=== PATIENT | female | born 1960 | race Caucasian/White ===

== ENCOUNTER 2021-03-13 07:37 | Outpatient (CLI) | payer BC, SELFPAY ==
--- NOTE | 2021-03-13 08:06 | ECHO_ITS ---
Patient Info Name: Karina Castrejon Age: 60 years : 1960 Gender: Female Ht: 66 in Wt: 250 lbs BSA: 2.35 m2 HR: 78 bpm BP: 145 / 91 mmHg Technical Quality: Fair Exam Date: 03/13/2021 8:18 AM Exam Location: [facility] Patient Status: Outpatient Admit Date: 03/13/2021 Staff Ordering Physician: Ryne Young APRN Print Shop Chief Clerk: Rita Wilkins RDCS Attending Provider: Ryne Young APRN Referring Physician: Hector LOVELACE; Exam Type: CA echo doppler color flow Study Info Indications I05.9 - RHEUMATIC MITRAL VALVE DISEASE, UNSPECIFIED Complete two-dimentional, color flow and Doppler transthoracic echocardiogram is performed with agitated saline and with contrast to opacify the left ventricle and to improve the delineation of the left ventricle endocardial borders. Summary 1. Left ventricular chamber dimension is normal. 2. Left ventricular systolic function is normal, estimated at 60-65%. 3. The left ventricular diastolic function is grade I diastolic dysfunction. 4. E/e' 14 is mildly elevated. 5. Left atrial chamber dimension is mildly enlarged. 6. No pulmonary hypertension, estimated pulmonary arterial systolic pressure is 20 mmHg. Left Ventricle E/e' 14 is mildly elevated. Left ventricular chamber dimension is normal. Left ventricular systolic function is normal, estimated at 60-65%. The left ventricular diastolic function is grade I diastolic dysfunction. Right Ventricle Right ventricular chamber dimension is normal. Right ventricular systolic function is normal. Left Atria Left atrial chamber dimension is mildly enlarged. Right Atria Right atrial chamber dimension is normal. Aortic Valve The aortic valve is not well visualized. There is no aortic valve stenosis. There is no aortic valve regurgitation. Pulmonic Valve There is no pulmonic regurgitation. Mitral Valve There is no obvious mitral valve stenosis. Mitral valve area by PHT 2.7 cm2 with normal mean gradient 2 mmHg. There is no mitral valve regurgitation. Tricuspid Valve There is no tricuspid valve regurgitation. No pulmonary hypertension, estimated pulmonary arterial systolic pressure is 20 mmHg. Pericardium/Pleural There is no pericardial effusion. Inferior Vena Cava Normal inferior vena cava with >50% collapse upon inspiration consistent with normal right atrial pressure, 5 mmHg. Aorta The aortic root size at the sinus of Valsalva is normal. Left Ventricular Outflow Tract Name Value Normal LVOT 2D LVOT Diameter 2.0 cm LVOT Doppler LVOT Peak Gradient 6 mmHg LVOT Mean Gradient 4 mmHg LVOT VTI 25 cm LVOT VTI/AV VTI Ratio 0.8 LVOT Stroke Volume 76 ml LVOT CO 5.7 l/min LVOT CI 2.6 l/min/m2 Pulmonic Valve Name Value Normal
== END 2021-03-13 07:38 | disposition home or self-care (01) ==
PROVIDERS: PCP Internal Medicine; Visit Provider Nurse Practitioner
DX: I05.9 Rheumatic mitral valve disease, unspecified (principal); Z87.74 Personal history of (corrected) congenital malformations of heart and circulatory system
CPT/HCPCS: 93306

== ENCOUNTER → 2021-03-26 12:39 | Outpatient (CLI) | payer BC, SELFPAY ==
--- NOTE | ~2021-03-26 | MM_ITS ---
EXAMINATION: MM screening denis BI w rizwana HISTORY: Screening TECHNIQUE: Craniocaudal and mediolateral oblique 3-D tomosynthesis images were obtained and synthetic 2-D images were generated. CAD analysis was submitted and interpreted. COMPARISON: No prior mammogram is available for comparison at this institution. BREAST PARENCHYMAL COMPOSITION: There are scattered areas of fibroglandular density. FINDINGS: There are benign-appearing intramammary lymph nodes in both breasts. There is no evidence o f suspicious mass, calcification, or architectural distortion to suggest malignancy in either breast. There has been no suspicious interval change. IMPRESSION: 1. No mammographic evidence of malignancy. 2. Recommend routine screening mammography in one year. BI-RADS Category 2: Benign finding(s). Reviewed, dictated and finalized at location A.
== END ==
PROVIDERS: PCP Internal Medicine; Visit Provider Obstetrics & Gynecology
DX: Z12.31 Encounter for screening mammogram for malignant neoplasm of breast (principal)
CPT/HCPCS: 77063; 77067

== ENCOUNTER → 2021-10-10 00:52 | Outpatient (CLI) | payer BC, SELFPAY ==
[2021-10-10 11:42] LABS: Influenza A QL RT-PCR Negative (Negative); Influenza B QL RT-PCR Negative (Negative); SARS-CoV-2 RNA PCR Negative
== END ==
PROVIDERS: PCP Internal Medicine; Visit Provider Nurse Practitioner
DX: R68.89 Other general symptoms and signs (principal); Z20.822 Contact with and (suspected) exposure to COVID-19
CPT/HCPCS: 87502; C9803; U0003; U0005

== ENCOUNTER 2022-08-05 14:33 | Outpatient (CLI) | payer BC, SELFPAY ==
--- NOTE | 2022-08-05 | ECHO_ITS ---
Patient Info Name: Karina Castrejon Age: 61 years : 1960 Gender: Female Ht: 66 in Wt: 244 lbs BSA: 2.32 m2 HR: 78 bpm BP: 156 / 84 mmHg Heart Rhythm: Sinus Rhythm Technical Quality: Fair Exam Date: 08/05/2022 2:55 PM Exam Location: [facility] Patient Status: Outpatient Admit Date: 08/05/2022 Staff Ordering Physician: Mansi, Jennie Sullivan MD Pyroglazer: Rebeka Arana RCS Attending Provider: Mansi, Jennie Sullivan MD Referring Physician: Mansi DAVIS; Exam Type: CA echo doppler color flow Study Info Indications - coarctation of aorta Complete two-dimensional, color flow and Doppler transthoracic echocardiogram is performed. Summary 1. Complete two-dimensional, color flow and Doppler transthoracic echocardiogram is performed. 2. Left ventricular chamber dimension is normal. 3. Left ventricular systolic function is normal, estimated at 65-70%. 4. Right ventricular systolic function is normal. 5. No significant valvular disease. Left Ventricle Left ventricular chamber dimension is normal. Left ventricular systolic function is normal, estimated at 65-70%. There is no increased left ventricular wall thickness. The left ventricular diastolic function is indeterminate. Right Ventricle Right ventricular chamber dimension is normal. Right ventricular systolic function is normal. Left Atria Left atrial chamber dimension is normal. Right Atria Right atrial chamber dimension is normal. Atrial Septum Intact interatrial septum visualized by color flow imaging. Aortic Valve The aortic valve is not well visualized. There is no aortic valve stenosis. There is no aortic valve regurgitation. Pulmonic Valve The pulmonic valve is not well visualized. Mitral Valve The mitral valve has thickened leaflets. There is no mitral valve stenosis. There is no mitral valve regurgitation. Tricuspid Valve The tricuspid valve leaflets are normal. There is no significant tricuspid valve stenosis. There is trace tricuspid valve regurgitation. Pericardium/Pleural There is no pericardial effusion. Inferior Vena Cava Normal inferior vena cava with >50% collapse upon inspiration consistent with normal right atrial pressure. Aorta The aortic root size at the sinus of Valsalva is normal. The prox ascending aorta size is not well visualized. Left Ventricular Outflow Tract Name Value Normal LVOT 2D LVOT Diameter 2.0 cm LVOT Doppler LVOT Peak Gradient 6 mmHg LVOT Mean Gradient 4 mmHg LVOT VTI 25 cm LVOT VTI/AV VTI Ratio 0.9 LVOT Stroke Volume 82 ml LVOT CO 17.7 l/min LVOT CI 7.6 l/min/m2 Pulmonic Valve Name Value Normal PV Doppler
== END 2022-08-05 14:34 | disposition home or self-care (01) ==
LOC: ANHCARD 14:35
PROVIDERS: PCP Internal Medicine; Visit Provider Family Medicine
DX: Q25.1 Coarctation of aorta (principal)
CPT/HCPCS: 93306

== ENCOUNTER 2022-09-16 10:25 | Outpatient (CLI) | payer BC, SELFPAY ==
--- NOTE | ~2022-09-16 | US_ITS ---
Ultrasound of the Abdominal Aorta INDICATION: Abdominal bruit TECHNIQUE: Grayscale, color Doppler, and pulsed Doppler images of the aorta and common iliac arteries were obtained. COMPARISON: None. FINDINGS: Maximum vascular dimensions are as follows: Proximal aorta: 2.5 cm Mid aorta: 2.1 cm Distal aorta: 1.9 cm Right common iliac artery: Obscured by bowel gas shadowing Left common iliac artery: Obscured by bowel gas shadowing There is no evidence of abdominal aortic aneurysm. IMPRESSION: No abdominal aortic aneurysm. Reviewed, dictated and finalized at location M. ING MACHINE OPERATOR
== END 2022-09-16 10:26 | disposition home or self-care (01) ==
LOC: ANHIMG 10:29
PROVIDERS: PCP Internal Medicine; Visit Provider Family Medicine
DX: R09.89 Other specified symptoms and signs involving the circulatory and respiratory systems (principal)
CPT/HCPCS: 76775

== ENCOUNTER → 2022-10-17 12:10 | Outpatient (CLI) | payer BC, SELFPAY ==
--- NOTE | ~2022-10-17 | MM_ITS ---
EXAMINATION: MM screening denis BI w rizwana HISTORY: Screening mammogram TECHNIQUE: Craniocaudal and mediolateral oblique 3-D tomosynthesis images were obtained and synthetic 2-D images were generated. CAD analysis was submitted and interpreted. COMPARISON: 03/26/2021 bilateral screening mammogram BREAST PARENCHYMAL COMPOSITION: The breasts are almost entirely fatty. FINDINGS: There is no evidence of suspicious mass, calcification, or architectural distortion to sugg est malignancy in either breast. There has been no suspicious interval change. IMPRESSION: 1. No mammographic evidence of malignancy. 2. Recommend routine screening mammography in one year. BI-RADS Category 1: Negative Reviewed, dictated and finalized at location A. CLIPPER
== END ==
PROVIDERS: PCP Family Medicine; Visit Provider Obstetrics & Gynecology
DX: Z12.31 Encounter for screening mammogram for malignant neoplasm of breast (principal)
CPT/HCPCS: 77063; 77067

== ENCOUNTER 2023-07-12 11:38 | Emergency (ER) | payer BC, SELFPAY ==
[2023-07-12 11:48] VITALS: BP 128/73; PULSE 80; RESP 16; TEMP 37.2; O2SAT 99
--- NOTE | 2023-07-12 11:55 | ED.NECK ---
HPI - Neck Pain/Injury General Chief Complaint: Neck Pain/Injury Stated Complaint: STIFF NECK Source: patient Mode of arrival: ambulatory Limitations: no limitations History of Present Illness HPI Narrative: 62-year-old female presenting for complaint of left neck pain for 3 days. She states she woke in the morning with neck stiffness, denies injury. Over the past days she has developed sharp pain under the base of the left side of the skull. Pain is sharp with any movement of the head. She took an old muscle relaxer and use heat this morning which helped temporarily. Denies pain radiating down the arms, numbness, tingling, weakness of the upper extremities. She endorses several weeks of left arm pain which she feels like ?overuse? and plans to follow-up with PCP regarding this; reports hx left golfer's elbow surgery. Reports cardiac catheterization over the summer that was normal. Denies chest pain, heart racing, dizziness, nausea vomiting or fatigue. Related Data Home Medications Medication Instructions Recorded Confirmed escitalopram oxalate 20 mg tablet 20 mg PO DAILY 01/28/23 07/12/23 Allergies Allergy/AdvReac Type Severity Reaction Status Date / Time gemifloxacin Allergy Unknown Unknown Verified 07/12/23 12:00 levofloxacin Allergy Unknown Unknown Verified 07/12/23 12:00 Quinolones Allergy Unknown Unknown Verified 07/12/23 12:00 Review of Systems Review of Systems: CONSTITUTIONAL: Denies body aches, fever, chills, or sweats. EYES: Denies visual changes, redness, or discharge. ENT: Denies rhinorrhea, congestion, sore throat, or otalgia. CARDIOVASCULAR: Denies chest pain, palpitations, or edema. RESPIRATORY: Denies cough or dyspnea. GASTROINTESTINAL: Denies abdominal pain, nausea, vomiting, or diarrhea. GENITOURINARY: Denies dysuria or hematuria. SKIN: Denies rash, itching, or wounds. MUSCULOSKELETAL: Reports left neck pain; left lower arm pain Denies back pain, joint pain NEUROLOGIC: Denies headache, numbness, tingling, or weakness. PSYCH: Denies depression or anxiety. All systems reviewed & are unremarkable except as noted in HPI and below PMFSH Past Medical History Medical History Anxiety High cholesterol Surgical History Surgical History H/O gynecological procedure hsope d&c History of orthopedic surgery golfer's elbow Family History Family History Sibling Family history of thyroid disease Father Diabetes mellitus, Onset Age: 84 Family history of malignant neoplasm, Onset Age: 84 Leukemia Mother Hypertension Other Acute myocardial infarction FH: malignant neoplasm of prostate Heart disease Malignant carcinoid tumor of lung Social History Social History Smoking status: Never smoker Alcohol intake: current Alcohol use details: occasional Substance use: never Substance use type: does not use Lack of Transportation: No Lack of Food: Never True Current Housing: I Have Housing Concerned About Future Housing: No Difficulty Paying Gas/Electric Bills: No Difficulty Paying for Meds: No Currently Unemployed: No Education: High School Diploma/GED Difficulty w/ Childcare or Family Care: No Living arrangements: with family Additional living arrangements comments: 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 Gender identity (if verbalized by the patient): Female Sexual Orientation (if Verbalized by the Patient): Straight or Heterosexual Comments At time of signature, I have reviewed and agree with nursing past medical, surgical, social and family history unless otherwise noted. Please see nursing chart for further information. There is no relevant family history per
== END 2023-07-12 11:44 | disposition home or self-care (01) ==
PROVIDERS: Emergency Provider Nurse Practitioner Family; PCP Family Medicine
DX: M54.2 Cervicalgia (principal); F41.9 Anxiety disorder, unspecified; E78.00 Pure hypercholesterolemia, unspecified
CPT/HCPCS: 99213; G0463

== ENCOUNTER 2024-05-19 10:42 | Outpatient (CLI) | payer OTHER, SELFPAY ==
[2024-05-19 18:35] LABS: Basophils Absolute Auto 0.1 K/mm3 (0.0-0.1); Basophils Percent Auto 0.8 % (0.2-1.2); Eosinophils Absolute Auto 0.2 K/mm3 (0-0.3); Eosinophils Percent Auto 2.3 % (0-4.4); Hemoglobin 14.2 g/dL (12.0-15.0); Immature Granulocyte Absolute 0.03 K/mm3 (0.00-0.031); Immature Granulocyte Percent A 0.4 % (0-0.5); Lymphocytes Absolute Auto 2.87 K/mm3 (0.9-3.2); Lymphocytes Percent Auto 34.1 % (18.3-44.2); Mean Corpuscular HGB Conc 31.6 g/dl (32-36); Mean Corpuscular Hemoglobin 29.5 pg (26-34); Mean Corpuscular Volume 93.6 fl (80-100); Mean Platelet Volume 12.7 fl (7.4-10.4); Monocytes Absolute Auto 0.6 K/mm3 (0.1-0.6); Monocytes Percent Auto 7.4 % (2.6-8.5); Neutrophils Absolute Auto 4.6 K/mm3 (1.3-6.7); Platelet Count Result 218 k/mm3 (150-375); Red Blood Count 4.81 M/mm3 (4.2-5.4); Red Cell Distribution Width 13.2 % (11.5-14.5); White Blood Count 8.4 K/mm3 (4.5-10.0)
[2024-05-19 19:33] LABS: Alanine Aminotransferase 21 U/L (6-35); Albumin Level 4.4 g/dL (3.5-5.1); Alkaline Phosphatase 95 U/L (38-126); Anion Gap 7 mmol/L (4-12); Aspartate Amino Transferase 67 U/L (14-36); Bilirubin,Total 0.7 mg/dL (0.2-1.3); Blood Urea Nitrogen 11 mg/dL (7-17); Calcium 9.5 mg/dL (8.4-10.2); Carbon Dioxide 30 mmol/L (22-30); Chloride 102 mmol/L (98-107); Cholesterol 150 mg/dL (0-200); Estimated Glomerular Filt Rate > 60; Glucose 89 mg/dL (65-110); HDL Direct 64 mg/dL; Potassium 4.3 mmol/L (3.4-5.0); Sodium 139 mmol/L (137-145); Triglycerides 63 mg/dL (<150)
[2024-05-19 19:48] LABS: LDL Cholesterol Direct 63 mg/dL
[2024-05-19 22:18] LABS: Hemoglobin A1C 5.8 % (<5.7)
[2024-05-19 22:46] LABS: Vitamin D 25 Hydroxy 49.7 ng/mL
== END 2024-05-19 10:43 | disposition home or self-care (01) ==
LOC: ANHBWCLAB 10:43
PROVIDERS: PCP Nurse Practitioner Adult Health; Visit Provider Nurse Practitioner Adult Health
DX: E78.5 Hyperlipidemia, unspecified (principal); E55.9 Vitamin D deficiency, unspecified; Z79.899 Other long term (current) drug therapy
CPT/HCPCS: 36415; 80053; 80061; 82306; 83036; 84443; 85025

== ENCOUNTER 2024-09-21 08:47 | Outpatient (CLI) | payer OTHER, BC, SELFPAY ==
--- OUTSIDE RECORDS SUMMARY | 2024-09-21 09:04 | XMS_ITS | Patient Health Summary ---
Author Organization [facility] Address [address] [address] Care Team Providers Care Carpet Mechanic Name Role Phone Abdirashid Beltrán DO Primary Care Provider [phone] Note from [facility] [place],non-owned Affiliates and Associated Physician Practices is amultiple site organization consisting of ambulatory clinics and hospital sitesin [place], [place] and [place]. This disclosure is being madepursuant to the Care Everywhere program and may not contain all information available regarding this patient. Last updated 18.[facility] Allergies * Levofloxacin(Rash) -Medium Criticality Immunizations * INFLUENZA VACCINE, QUADR. (FLUZONE; FLULAVAL; FLUARIX; AFLURIA QUADRIVALENT; 6MO+), 0.5 ML (IIV4)(Given 06/02/2020) Social History Tobacco Use Types Packs/Day Years Used Date Smoking Tobacco: Never Assessed Sex and Gender Information Value Date Recorded Sex Assigned at Not on file Gender Identity Not on file Sexual Orientation Not on file Care Teams Carpet Mechanic Relationship Specialty Start Date End Date Abdirashid Beltrán DO [address] [place] [address] PCP - General Internal Medicine 06/02/20
--- OUTSIDE RECORDS SUMMARY | 2024-09-21 09:04 | XMS_ITS | CONTINUITY OF CARE DOCUMENT ---
Author Name kylereynoldmacario Address Unknown Organization [facility] Address [address] [place] [address] Phone [phone] Care Team Providers Care Market Development Manager Name Role Phone Yousuf Robbins MD Unavailable [phone] LANEY CONDE MD Unavailable LANEY CONDE MD Unavailable [phone] INSURANCE PROVIDERS Payer name Policy type / Coverage type [place] red libertarian ID [facility] [employer] insurance [employer] [id number]
--- OUTSIDE RECORDS SUMMARY | 2024-09-21 09:04 | XMS_ITS | Referral Summary ---
Author Organization [facility] [address] Address [address] [place] [address] Care Team Providers Care Electrical Wirer Name Role Phone Jennie Nazario MD Primary Care Provider + Allergies Active Allergy Reactions Criticality Noted Date Comments Levofloxacin Rash Medium 06/02/2020 Rofecoxib Sulfa (Sulfonamide Antibiotics) Medications montelukast (SINGULAIR) 10 mg tablet Take 1 tablet (10 mg total) by mouth daily 2 Active atorvastatin (LIPITOR) 20 mg tablet Take 1 tablet (20 mg total) by mouth daily 2 Active escitalopram (LEXAPRO) 20 mg tablet Take 1.5 tablets (30 mg total) by mouth daily 3 Active ergocalciferol (VITAMIN D) 50,000 unit capsule Take 1 capsule (50,000 Units total) by mouth once a week 4 Active albuterol HFA (PROVENTIL HFA,VENTOLIN HFA,PROAIR HFA) 90 mcg/actuation inhaler Inhale 2 puffs every 6 (six) hours as needed for wheezing Active budesonide-form oteroL (Symbicort) 160-4.5 mcg/actuation inhaler Inhale 2 puffs 2 (two) times a day Rinse mouth with water after use. Do not swallow. 1 each 4 Active triamcinolone (NASACORT) 55 mcg nasal inhaler Administer 2 sprays into each nostril daily 16.9 mL 11 4 Active Active Problems Problem Noted Date Diagnosed Date Chronic cough 01/13/2024 Allergic rhinitis due to mold 01/13/2024 Chest pain 02/21/2023 Left bundle branch block 02/21/2023 History of aortic coarctation repair 02/21/2023 Hyperlipidemia 02/21/2023 Immunizations Name Administration Dates Next Due Influenza, Quadrivalent, Taya l Culture-based MDCK, Preservative Free, Antibiotic Free, Intramuscular 05/20/2019 Influenza, Quadrivalent, Spl it, Preservative Free, Intramuscular 06/02/2020 Influenza, Trivalent, IM (MDV) 06/05/2021 Influenza, Trivalent, Preservative Free, Intramu scular 06/01/2017 Influenza, Unspecified 06/09/2013 Social History Tobacco Use Types Packs/Day Years Used Date Smoking Tobacco: Never Passive Smoke Exposure: Past Personal Safety Answer Date Recorded Getting School Help Needed Not on file 08/28 Comments Unknown Sex and Gender Information Value Date Recorded Sex Assigned at Not on file 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 Gender Identity Not on file Sexual Orientation Not on file Last Filed Vital Signs Vital Sign Reading Time Taken Comments Blood Pressure 134/76 04/27/2024 10:41 AM CDT Pulse 79 04/27/2024 10:41 AM CDT Temperature 36.6 ??C (97.9 ??F) 04/27/2024 10:41 AM C DT Respiratory Rate 16 03/24/2023 10:07 AM CDT Oxygen Saturation 98% 04/27/2024 10:41 AM CDT Inhaled Oxygen Concentration - - Weight 111.1 kg (245 lb) 04/27/2024 10:41 AM CDT Height 167.6 cm (5' 6 ) 01/13/2024 8:21 AM CDT Body Mass Index 39.54 01/13/2024 8:21 AM CDT Plan of Treatment Not on file Insurance [employer] OOS BLUE ACC CHOICE OOS BLUE ACCESS OOS BLUE ACC CHOICE OOS BLUE ACC CHOICE OOS NEXUS Member Subscriber Plan / Payer (Ef fective 2023-Present) Name:Karina Castrejon Relation to Subscriber:Self Name:Karina Castrejon Payer ID:[id number] (NAIC) Type:[facility] HMO/PPO Address: [address] [place] [id number] Care Teams Electrical Wirer Relationship Specialty Start Date End Date Jennie Nazario MD [address] [place] [address] [place] [address] PCP - General Family Medicine 02/21/23
--- OUTSIDE RECORDS SUMMARY | 2024-09-21 09:04 | XMS_ITS | Referral Summary ---
Author Organization [facility] Address [address] [place] [address] Care Team Providers Care Program Services Assistant Name Role Phone Abdirashid Beltárn Primary Care Provider [phone] Source Comments [facility],non-owned Affiliates and Associated Physician Practices is amultiple site organization consisting of ambulatory clinics and hospital sitesin [place], [place], [place] and [place]. This disclosure is being madepursuant to the Care Everywhere program and may not contain all information available regarding this patient. Last updated 18.[facility] [employer] Allergies Active Allergy Reactions Criticality Noted Date Comments Levofloxacin Rash Medium 06/02/2020 Immunizations Name Administration Dates Next Due INFLUENZA VACCINE, QUADR. (F LUZONE; FLULAVAL; FLUARIX; AFLURIA QUADRIVALENT; 6MO+), 0.5 ML (IIV4) 06/02/2020 Social History Tobacco Use Types Packs/Day Years Used Date Smoking Tobacco: Never Assessed Sex and Gender Information Value Date Recorded Sex Assigned at Not on file Gender Identity Not on file Sexual Orientation Not on file Plan of Treatment Not on file Care Teams Program Services Assistant Relationship Specialty Start Date End Date Abdirashid Beltrán DO [address] [place] [address] PCP - General Internal Medicine 06/02/20
--- OUTSIDE RECORDS SUMMARY | 2024-09-21 09:04 | XMS_ITS | Clinical Summary ---
Author Organization [facility] [address] Address [address] [place] [address] Care Team Providers Care Anglesmith Helper Name Role Phone Jennie Nazario MD Primary [...] Free, Intramu scular 06/01/2017 Influenza, Unspecified 06/09/2013 Surgical History Surgery Date Site/Laterality Comments COARCTATION OF AORTA EXCISION Medical History Medical History Date Comments Asthma Family History Medical History Relation Name Comments Diabetes Father Leukemia Father Heart attack Maternal Grandfather Heart disease Maternal Grandfather Heart disease Maternal Grandmother Stroke Maternal Grandmother Hypertension Mother Skin cancer Mother Heart disease Paternal Grandfather Heart disease Paternal Grandmother Relation Name Status Comments Father Maternal Grandfather Maternal Grandmother Mother Paternal Grandfather Paternal Grandmother Social History Tobacco Use Types Packs/Day Years Used Date Smoking Tobacco: Never Passive Smoke Exposure: Past Personal Safety Answer Date Recorded Getting School Help Needed Not on file 08/28 Comments Unknown Sex and Gender Information Value Date Recorded Sex Assigned at Not on file 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 Gender Identity Not on file Sexual Orientation Not on file Obstetrics History Last Filed Vital Signs Vital Sign Reading [...] 01/13/2024 8:21 AM CDT Plan of Treatment Health Maintenance Due Date Last Done Comments Breast Cancer Screening-Mammogram 1960 Cervical Cancer Screening 1960 Colon Cancer Screening-Colonoscopy 1960 Depression Screening 1960 Hepatitis C Screening 1960 DTaP/Tdap/Td Vaccine (1 - Tdap) 1973 Hepatitis B Screening 1980 Regular Well Visit/Exam 18-64 1980 Zoster Vaccine (1 of 2) 2012 Covid-19 Vaccine (4 - season) 2024 07/22/2021, 11/14/2020, 10/24/2020 Influenza Vaccine (#1) 2024 , 06/02/2020, 05/20/2019, Additional history exists Pneumococcal vaccine <65 Aged Out No longer eligible based on patient's age to complete this topic Insurance [employer] OOS BLUE Expreem CHOICE OOS BLUE ACCESS OOS BLUE ACC CHOICE OOS BLUE ACC CHOICE OOS Member Subscriber Plan / Payer (Ef fective 2022-) Name:Karina Castrejon Relation to Subscriber:Spouse Name:SARAH CASTREJON Date of :1964 (Home) Address: [address] [place] [address] [place] [address] Payer ID:[id number] (NAIC) Type: [employer] Address: [address] NEXUS Care Teams Anglesmith Helper Relationship Specialty Start Date End Date Jennie Nazario MD [address] [place] [address] [place] [address] PCP - General Family Medicine 02/21/23
--- OUTSIDE RECORDS SUMMARY | 2024-09-21 09:04 | XMS_ITS | Clinical Summary ---
Author Organization [facility] Address [address] [place] [address] Care Team Providers Care Financial Reporting Analyst Name Role Phone Abdirashid Beltrán Primary Care Provider Source Comments [facility],non-owned Affiliates and Associated Physician Practices is amultiple site organization consisting of ambulatory clinics and hospital sitesin [place], [place] and [place]. This disclosure is being madepursuant to the Care Everywhere program and may not contain all information available regarding this patient. Last updated 18.[facility] [employer] Allergies Active Allergy Reactions Criticality Noted Date [...] Orientation Not on file Plan of Treatment Health Maintenance Due Date Last Done Comments COLOGUARD (AGES 45-75) - COL ON CA SCREENING 1960 COLON MONITORING 1960 COLONOSCOPY - COLON CA SCREENING 1962 CT COLONOGRAPHY - COLON CA SCREENING 1960 Colorectal Cancer Screening 1960 FIT - COLON CA SCREENING 1962 FLEX SIG - COLON CA SCREENING 1960 LIPID TESTING 1960 MAMMOGRAM 1960 PAP SMEAR 1962 HIV SCREENING 1977 HEPATITIS C SCREENING 12/06/1980 DTAP/TDAP/TD VACCINES (1 - Tdap) 1981 PNEUMOCOCCAL VACCINE 50+ (1 of 1 - PCV) 2012 ZOSTER VACCINE (1 of 2) 2012 COVID-19 VACCINE (1 - 2023-2 5 season) 2024 INFLUENZA VACCINE (#1) 2024 06/02/2020 DEPRESSION SCREENING 08/25/2024 Respiratory Syncytial Virus (RSV) Vaccine Pt: or over 60 yrs (1 - 1-dose 75+ series) 2037 HEPATITIS B VACCINE Aged Out No longe r eligible based on patient's age to complete this topic HIB VACCINE Aged Out No longer eligi ble based on patient's age to complete this topic HPV VACCINE Aged Out No longer eligi ble based on patient's age to complete this topic MENINGOCOCCAL (Group B) VACCINE Aged Out No longer eligible based on patient's age to complete this topic MENINGOCOCCAL VACCINE Aged Out No sharad edin eligible based on patient's age to complete this topic PNEUMOCOCCAL VACCINE Aged Out No long er eligible based on patient's age to complete this topic Care Teams Financial Reporting Analyst Relationship Specialty Start Date End Date Abdirashid Beltrán DO [address] [place] [address] PCP - General Internal Medicine 06/02/20
--- OUTSIDE RECORDS SUMMARY | 2024-09-21 09:04 | XMS_ITS | Continuity of Care Document ---
Author Organization [facility] Address [address] [place] [address] [place] [address] Phone Care Team Providers Care Material Flow Engineer Name Role Phone Unavailable Unavailable Unavailable Advance Directives Directive Yes / No Effective Date File Name No Information Encounters Encounter Description Practice Location Reason(s) For Visit Diagnoses Date Provider Providers Copied on Encounter [facility], [address], [place], [place], [id number], [place] tel:[phone] [facility] No Information Jan- 9200 0 No Information Family History Family Member Type Diagnosis Age At Onset No Information Payers Payer name Insurance type Covered green party ID Authoriza tion(s) No Information Social History Type Description Quantity Date Captured Comments Sex Female Smoking Status No Information Chief Complaint And Reason For Visit No Information Reason For Referral Reason For Referral No Information History Of Present Illness Encounter Date Complaint History Of Prese nt Illness No Information Functional Status Date Functional Assessmen t No Information Instructions Date Instruction Additional Infor mation No Information Assessments Type Assessment Date No Information Patient Care Teams Name Effective Dates (start - stop) Status Members No Information
--- NOTE | 2024-09-21 09:45 | NEURO_ITS ---
Impression: # Complains of numbness of fingers on right hand. Non-diabetic. ? # Normal Nerve Conduction Study. ? # No Carpal Tunnel Syndrome at this time. ? # No ulnar neuropathy. ? # Normal needle/EMG. ? # Ulnar to median cross innervation noted. Nerve Conduction Studies Anti Sensory Summary Table ?Stim Site NR Peak (ms) P-T Amp (?V) Site1 Site2 Delta-P (ms) Dist (cm) Inocente (m/s) Right Median Anti Sensory (2-3nd Digit) Wrist ? 2.9 62.0 Wrist 2-3nd Digit 2.9 14.0 48 Wrist ? 2.8 28.6 Wrist 2-3nd Digit 2.9 14.0 48 Right Radial Anti Sensory (Base 1st Digit) Wrist ? 2.3 26.7 Wrist Base 1st Digit 2.3 0.0 Right Ulnar Anti Sensory (5th Digit) Wrist ? 2.2 38.6 Wrist 5th Digit 2.2 14.0 64 Motor Summary Table ?Stim Site NR Onset (ms) O-P Amp (mV) Site1 Site2 Delta-0 (ms) Dist (cm) Inocente (m/s) Right Median Motor (Abd Poll Brev) Wrist ? 3.0 6.5 Elbow Wrist 4.8 29.0 60 Elbow ? 7.8 3.3 Right Ulnar Motor (Abd Dig Minimi) Wrist ? 2.0 6.5 A Elbow Wrist 4.9 30.0 61 A Elbow ? 6.9 5.2 F Wave Studies ?NR F-Lat (ms) L-R F-Lat (ms) Right Median (Mrkrs) (Abd Poll Brev) ? 26.67 Right Ulnar (Mrkrs) (Abd Dig Min) ? 27.29 EMG ?Side Muscle Nerve Root Ins Act Fibs Amp Dur Recrt Comment Right 1stDorInt Ulnar C8-T1 Nml Nml Nml Nml Nml Right Ext Indicis Radial (Post Int) C7-8 Nml Nml Nml Nml Nml Right Ext Digitorum Radial (Post Int) C7-8 Nml Nml Nml Nml Nml Right BrachioRad Radial C5-6 Nml Nml Nml Nml Nml Right PronatorTeres Median C6-7 Nml Nml Nml Nml Nml Right Abd Poll Brev Median C8-T1 Nml Nml Nml Nml Nml Right ABD Dig Min Ulnar C8-T1 Nml Nml Nml Nml Nml MTDD
== END 2024-09-21 08:48 | disposition home or self-care (01) ==
LOC: ANHNEURO 08:48
PROVIDERS: PCP Nurse Practitioner Adult Health; Visit Provider Nurse Practitioner Adult Health
DX: R20.0 Anesthesia of skin (principal)
CPT/HCPCS: 95886; 95909

== ENCOUNTER 2024-11-17 11:35 | Outpatient (CLI) | payer OTHER, BC, SELFPAY ==
--- NOTE | ~2024-11-17 | XR_ITS ---
XR shoulder RT min 2V Ordering provider: Evelyn Jaime History: . M25.519 - Pain in unspecified shoulder . Comparison: None. FINDINGS: BONES: No acute fracture or dislocation. Degenerative changes in the greater tuberosity area. JOINT SPACES: The acromioclavicular joint shows osteoarthritic changes.. The glenohumeral joint is no rmal. SOFT TISSUES: Normal. IMPRESSION: No acute osseous abnormality right shoulder. Osteoarthritic changes of the acromioclavicular joint. Reviewed, dictated and finalized at location A. IMPRESSION: No acute osseous abnormality right shoulder. Osteoarthritic changes of the acro mioclavicular joint.
--- OUTSIDE RECORDS SUMMARY | 2024-11-17 13:08 | XMS_ITS | Referral Summary ---
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 Gender Identity Not on file Sexual Orientation Not on file Last Filed Vital Signs Vital Sign Reading Time Taken Comments Blood Pressure 134/76 04/27/2024 10:41 AM CDT Pulse 79 04/27/2024 10:41 AM CDT Temperature 36.6 C (97.9 F) 04/27/2024 10:41 AM CDT Respiratory Rate 16 03/24/2023 10:07 AM CDT Oxygen Saturation 98% 04/27/2024 10:41 AM CDT Inhaled Oxygen Concentration - - Weight 111.1 kg (245 lb) 04/27/2024 10:41 AM CDT Height 167.6 cm (5' 6 ) 01/13/2024 8:21 AM CDT Body Mass Index 39.54 01/13/2024 8:21 AM CDT Plan of Treatment Not on file Insurance [employer] OOS BLUE ACC CHOICE OOS BLUE ACCESS OOS BLUE ACC CHOICE OOS BLUE [facility] CHOICE OOS [facility] HMO/PPO Address: [address] [place] [phone] Care Teams Hospitality Associate Relationship Specialty Start Date End Date Jennie Nazario MD [address] [place] [address] [address] [place] [address] PCP - General Family Medicine 02/21/23
--- OUTSIDE RECORDS SUMMARY | 2024-11-17 13:08 | XMS_ITS | Continuity of Care Document ---
Author Organization [facility] Address [address] [place] [address] [place] [address] Phone Care Team Providers Care Office Chair Assembler Name Role Phone Unavailable Unavailable Unavailable Advance Directives Directive Yes / No Effective Date File Name No Information Encounters Encounter Description Practice Location Reason(s) For Visit Diagnoses Date Provider Providers Copied on Encounter [facility], [address], [place], [place], [id number], [place] tel:[phone] [facility] No Information Jan- 9200 0 No Information Family History Family Member Type Diagnosis Age At Onset No Information Payers Payer name Insurance type Covered constitution party ID Authoriza tion(s) No Information Social [...]
--- OUTSIDE RECORDS SUMMARY | 2024-11-17 13:08 | XMS_ITS | CONTINUITY OF CARE DOCUMENT ---
Author Name kylereynoldmacario Address Unknown Organization [facility] Address [address] [place] [address] Phone [phone] Care Team Providers Care Will Call Clerk Name Role Phone Yousuf Robbins MD Unavailable [phone] LANEY CONDE MD Unavailable [phone] LANEY CONDE MD Unavailable [phone] INSURANCE PROVIDERS Payer name Policy type / Coverage type [place] red democrat ID [facility] [id number] insurance [id number]
--- OUTSIDE RECORDS SUMMARY | 2024-11-17 13:08 | XMS_ITS | Clinical Summary ---
Author Organization [facility] Address [address] [place] [address] Care Team Providers Care Squeegeer And Former Name Role Phone Abdirashid Beltrán Primary Care Provider [phone] Source Comments [facility],non-owned Affiliates and Associated Physician Practices is amultiple site organization consisting of ambulatory clinics and hospital sitesin [place], [place], [place] and [place]. This disclosure is being madepursuant to the Care Everywhere program and may not contain all information available regarding this patient. Last updated 18.[facility] [employer] Allergies Active Allergy Reactions Criticality Noted Date [...] to complete this topic MENINGOCOCCAL (Group B) VACC INE SHARED DECISION-MAKING Aged Out No longer eligibl e based on patient's age to complete this topic MENINGOCOCCAL GROUPS A/C/Y/W VACCINE Aged Out No longer eligible b ased on patient's age to complete this topic PNEUMOCOCCAL VACCINE Aged Out No long er eligible based on patient's age to complete this topic Care Teams Squeegeer And Former Relationship Specialty Start Date End Date Abdirashid Beltrán DO [address] [place] [address] PCP - General Internal Medicine 06/02/20
--- OUTSIDE RECORDS SUMMARY | 2024-11-17 13:08 | XMS_ITS | Clinical Summary ---
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 Gender Identity Not on file Sexual Orientation [...] of 2) 2012 Covid-19 Vaccine (4 - 2023- season) 2024 07/22/2021, 11/14/2020, 10/24/2020 Influenza Vaccine (#1) 2024 , 06/02/2020, 05/20/2019, Additional history exists Pneumococcal vaccine <65 Aged Out No longer eligible based on patient's age to complete this topic Insurance Code Blue OOS Member Subscriber Plan / Payer (Ef fective 2020-Present) Name:Karina Castrejon Relation to Subscriber:Self Name:Karina Castrejon Payer ID:[id number] (IC) Type:[employer] Address: [facility] [id number] Lift CHOICE OOS BLUE ACCESS OOS BLUE ACC CHOICE OOS BLUE ACC CHOICE OOS Member Subscriber Plan / Payer (Ef fective 2022-) Name:Karina Castrejon Relation to Subscriber:Spouse Name:SARAH CASTREJON Date of :1964 (Home) [address]: [address] [place] [id number] Payer ID:[id number] (NAIC) Type:BC ALLIANCE Address: [address] [place] Care Teams Band Shover Relationship Specialty Start Date End Date Jennie Nazario MD [address] [place] [address] [place] [address] PCP - General Family Medicine 02/21/23
[2024-11-17 19:01] LABS: Alanine Aminotransferase 33 U/L (6-35); Albumin Level 4.4 g/dL (3.5-5.1); Alkaline Phosphatase 101 U/L (38-126); Anion Gap 9 mmol/L (4-12); Aspartate Amino Transferase 87 U/L (14-36); Bilirubin,Total 0.8 mg/dL (0.2-1.3); Blood Urea Nitrogen 13 mg/dL (7-17); Calcium 9.5 mg/dL (8.4-10.2); Carbon Dioxide 29 mmol/L (22-30); Chloride 104 mmol/L (98-107); Cholesterol 164 mg/dL (0-200); Estimated Glomerular Filt Rate > 60; Glucose 94 mg/dL (65-110); HDL Direct 64 mg/dL; Potassium 4.3 mmol/L (3.4-5.0); Sodium 142 mmol/L (137-145); Triglycerides 80 mg/dL (<150)
[2024-11-17 19:12] LABS: LDL Cholesterol Direct 60 mg/dL
[2024-11-17 19:44] LABS: Vitamin D 25 Hydroxy 40.9 ng/mL
[2024-11-17 20:57] LABS: Hemoglobin A1C 5.6 % (<5.7)
== END 2024-11-17 11:36 | disposition home or self-care (01) ==
LOC: ANHBWCLAB 11:37
PROVIDERS: PCP Nurse Practitioner Adult Health; Visit Provider Nurse Practitioner Adult Health
DX: M19.011 Primary osteoarthritis, right shoulder (principal); E55.9 Vitamin D deficiency, unspecified; E78.5 Hyperlipidemia, unspecified
CPT/HCPCS: 36415; 73030; 80053; 80061; 82306; 83036

== ENCOUNTER 2024-12-24 11:42 | Outpatient (CLI) | payer OTHER, BC, SELFPAY ==
--- NOTE | ~2024-12-24 | MM_ITS ---
EXAMINATION: MM screening denis BI w rizwana HISTORY: Screening TECHNIQUE: Craniocaudal and mediolateral oblique 3-D tomosynthesis images were obtained and synthetic 2-D images were generated. CAD analysis was submitted and interpreted. COMPARISON: Comparison to multiple prior studies sequentially, with oldest reviewed study dated 09/2020. BREAST PARENCHYMAL COMPOSITION: Not dense: There are scattered areas of fibroglandular density. FINDINGS: There is no evidence of suspicious mass, calcification, or architectural distortion to sugg est malignancy in either breast. There has been no suspicious interval change. IMPRESSION: 1. No mammographic evidence of malignancy. 2. Recommend routine screening mammography in one year. BI-RADS Category 1: Negative Reviewed, dictated and finalized at location A.
== END 2024-12-24 11:43 | disposition home or self-care (01) ==
LOC: MICIMG 11:43
PROVIDERS: PCP Nurse Practitioner Adult Health; Visit Provider Obstetrics & Gynecology
DX: Z12.31 Encounter for screening mammogram for malignant neoplasm of breast (principal)
CPT/HCPCS: 77063; 77067

== ENCOUNTER 2025-01-01 09:46 | Outpatient (CLI) | payer OTHER, BC, SELFPAY ==
--- OUTSIDE RECORDS SUMMARY | 2025-01-01 09:48 | XMS_ITS | Clinical Summary ---
Author Organization [facility] Address [address] [place] [address] Care Team Providers Care Hydrographic Engineer Name Role Phone Abdirashid Beltrán Primary Care Provider [phone] Source Comments [facility],non-owned Affiliates and Associated Physician Practices is amultiple site organization consisting of ambulatory clinics and hospital sitesin [place], [place], [place] and [place]. This disclosure is being madepursuant to the Care Everywhere program and may not contain all information available regarding this patient. Last updated 18.[facility] [employer] Allergies Active Allergy Reactions Criticality Noted Date Comments Levofloxacin Rash Medium 06/02/2020 Immunizations Immunization Administration Dates Next Due INFLUENZA VACCINE, QUADR. (F LUZONE; FLULAVAL; FLUARIX; AFLURIA QUADRIVALENT; 6MO+), 0.5 ML (IIV4) 06/02/2020 Social History Tobacco Use Types Packs/Day Years Used Date Smoking Tobacco: Never Assessed Comments Unknown Sex and Gender Information Value Date Recorded Sex Assigned at Not on file Legal Sex Female 5:04 PM CDT Gender Identity Not on file Sexual Orientation [...] SCREENING 1960 LIPID TESTING 1960 MAMMOGRAM 1960 HIV SCREENING 1977 HEPATITIS C SCREENING 12/06/1980 DTAP/TDAP/TD VACCINES (1 - Tdap) 1981 PNEUMOCOCCAL VACCINE 50+ (1 of 1 - PCV) 2012 ZOSTER VACCINE (1 of 2) 2012 COVID-19 VACCINE (1 - 2023-2 5 season) 2024 DEPRESSION SCREENING 08/25/2024 INFLUENZA VACCINE (Season Ended) 2025 06/02/20 20 Respiratory Syncytial Virus (RSV) Vaccine Pt: or [...] patient's age to complete this topic Insurance ANTHEM ANTHEM Care Teams Hydrographic Engineer Relationship Specialty Start Date End Date Abdirashid Beltrán DO [address] [facility] [address] [place], [place] [id number] PCP - General Internal Medicine 06/02/20
--- OUTSIDE RECORDS SUMMARY | 2025-01-01 09:48 | XMS_ITS | Clinical Summary ---
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 Address: [facility] [place] [facility] [id number] [address] [place] CHOICE OOS BLUE ACCESS OOS BLUE ACC CHOICE OOS BLUE ACC CHOICE OOS Member Subscriber Plan / Payer (Ef fective 2022-) Name:Karina Castrejon Relation to Subscriber:Spouse Name:SARAH CASTREJON Date of :1964 (Home) Address: [address] [place] [id number] Payer ID:[id number] (NAIC) Type:BC ALLIANCE Address: [address] [place] Care Teams Fabrication Inspector Relationship Specialty Start Date End Date Jennie Nazario MD [address] [place] [address] [place] [address] PCP - General Family Medicine 02/21/23
--- OUTSIDE RECORDS SUMMARY | 2025-01-01 09:48 | XMS_ITS | CONTINUITY OF CARE DOCUMENT ---
Author Name kylereynoldmacario Address Unknown Organization [facility] Address [address] [place] [address] Phone [phone] Care Team Providers Care Sharepoint Developer Name Role Phone Yousuf Robbins MD Unavailable [phone] LANEY CONDE MD Unavailable [phone] LANEY CONDE MD Unavailable [phone] INSURANCE PROVIDERS Payer name Policy type / Coverage type Lamar red republican ID [facility] [id number] insurance investUP [id number]
--- OUTSIDE RECORDS SUMMARY | 2025-01-01 09:48 | XMS_ITS | Continuity of Care Document ---
Author Organization [facility] Address [address] [place] [address] [place] [address] Phone Care Team Providers Care Professor Of Art History Name Role Phone Unavailable Unavailable Unavailable Advance Directives Directive Yes / No Effective Date File Name No Information Encounters Encounter Description Practice Location Reason(s) For Visit Diagnoses Date Provider Providers Copied on Encounter [facility], [address], [place], [place], [id number], [place] tel:[phone] [facility] No Information Jan- 9200 0 No Information Family History Family Member Type Diagnosis Age At Onset No Information Payers Payer name Insurance type Covered alliance party ID Authoriza tion(s) No Information Social [...]
--- OUTSIDE RECORDS SUMMARY | 2025-01-01 09:48 | XMS_ITS | Referral Summary ---
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
[2025-01-01 10:14] LABS: Alanine Aminotransferase 25 U/L (6-35); Albumin Level 4.2 g/dL (3.5-5.1); Alkaline Phosphatase 99 U/L (38-126); Aspartate Amino Transferase 25 U/L (14-36); Bilirubin,Total 0.6 mg/dL (0.2-1.3)
== END 2025-01-01 09:47 | disposition home or self-care (01) ==
LOC: ANHLAB 09:47
PROVIDERS: PCP Nurse Practitioner Adult Health; Visit Provider Nurse Practitioner Adult Health
DX: R74.8 Abnormal levels of other serum enzymes (principal)
CPT/HCPCS: 36415; 80076

== ENCOUNTER 2025-02-01 14:18 | Outpatient (CLI) | payer OTHER, BC, SELFPAY ==
--- NOTE | ~2025-02-01 | DEXA_ITS ---
Bone Density Report Name: KATARINA BENJAMIN Age: 64 Sex: Female Ethnicity: White Date of : 1960 Indication: postmenopausal; screening for osteoporosis; asthma or emphysema; Referring Provider: ELBA PARK Study: Bone densitometry was performed. Exam Date: February 01, 2025 Accession number: [id number] Bone Density: Region BMD T-score Z-score Classification AP Spine(L1-L4) 0.923 -1.1 0.4 Osteopenia Femoral Neck (Left) 0.890 0.4 1.7 Normal Total Hip (Left) 1.098 1.3 2.3 Normal Femoral Neck (Right) 0.981 1.2 2.6 Normal Total Hip (Right) 1.112 1.4 2.5 Normal Total Hip Mean 1.105 1.4 2.4 Normal World Health Organization criteria for BMD impression classify patients as: Normal (T-score at or above -1.0), Osteopenia (T-score between -1.0 and -2.5), or Osteoporosis (T-score at or below -2.5). 10-year Fracture Risk(1): Major Osteoporotic Fracture 5.5% Hip Fracture 0.1% Reported Risk Factors: [place] (), Neck BMD=0.890, BMI=39.2 (1) FRAX(R) Version 3.08. Fracture probability calculated for an untreated patient. Fracture probability may be lower if the patient has received treatment. Clinical Information Provided by Patient: Has used the following medications: Vitamin D Has the following medical conditions: Asthma or Emphysema Patient maximum height was 66 Menopause Age: 52 No regular weight bearing exercise Drinks caffeinated beverages Onset of menses at age 15 Number of children 3 Impression: The patient has low bone mass, based on the Total Spine T-score. The patient has an estimated ten-year risk of hip fracture of 0.1% and an estimated ten-year risk of major fracture of 5.5%, based on the WHO FRAX algorithm. Discussion: BONE DENSITY IS LOW AT ONE OR MORE SKELETAL SITES. This patient's lowest T-score is low at one or more skeletal sites. It meets the World Health Organization's (WHO) criteria for ?low bone mass? (T-score between -1.0 and -2.5). The patient's 10-year risk of fracture as calculated by FRAX is less than the threshold where pharmacological therapy is recommended by the National Osteoporosis Foundation (NOF). However, all treatment decisions require clinical judgment and consideration of individual patient factors, including patient preferences, comorbidities, previous drug use, risk factors not captured in the FRAX model (e.g., frailty, falls, vitamin D deficiency, increased bone turnover, interval significant decline in bone density) and possible under or overestimation of fracture risk by FRAX. The patient should follow a healthful lifestyle (good nutrition with adequate calcium and vitamin D, and appropriate weight-bearing exercise). Follow-Up: Consider repeating this study in 2 to 3 years to reassess this patient's status, or sooner if there is some new clinical indication. Reported by: LISSETTE on 02/01/2025 3:06:00 PM. Reviewed, dictated and finalized at location A.
== END 2025-02-01 14:19 | disposition home or self-care (01) ==
LOC: MICIMG 14:18
PROVIDERS: PCP Nurse Practitioner Adult Health; Visit Provider Nurse Practitioner Adult Health
DX: Z13.820 Encounter for screening for osteoporosis (principal); Z78.0 Asymptomatic menopausal state; M85.88 Other specified disorders of bone density and structure, other site
CPT/HCPCS: 77080

== ENCOUNTER 2025-06-13 16:23 | Emergency (ER) | payer OTHER, BC, SELFPAY ==
--- NOTE | ~2025-06-13 | US_ITS ---
LIMITED ABDOMINAL ULTRASOUND INDICATION:ruq pain, pain with eating COMPARISON: None. FINDINGS: Liver: Visualized portions of the liver are normal. Common bile duct: Normal in size. Gallbladder: Evaluation is limited due to contracted state. No shadowing gallstone seen. Castro's sign: Negative Right kidney:There is no hydronephrosis. Right kidney is unremarkable. IMPRESSION: No evidence for acute cholecystitis or cholelithiasis. No biliary ductal dilatation is noted. Reviewed, dictated and finalized at location S.
--- NOTE | ~2025-06-13 | XR_ITS ---
EXAMINATION: XR chest 2V, 06/13/2025 16:55 CDT HISTORY: chest pain COMPARISON: No comparisons available. Technique: 2 views obtained. Findings: The lungs are clear, no effusion. No pneumothorax. Heart is normal size. Mediastinal and hilar contours are within normal limits. Bony thorax no acute abnormality. Impression: No acute cardiopulmonary abnormality. Reviewed, dictated and finalized at location P. Impression: No acute cardiopulmonary abnormality.
[2025-06-13 16:36] VITALS: BP 153/69; PULSE 77; RESP 22; TEMP 36.7; O2SAT 97
--- NOTE | 2025-06-13 16:39 | ECG_ITS ---
Test Date: 2025-06-13 16:43:00 Measurements Intervals [place] Rate: 75 P: 60 WA: 174 QRS: -58 QRSD: 127 T: 79 QT: 406 QTc: 453 Interpretive Statements SINUS RHYTHM LEFT AXIS DEVIATION IVCD, CONSIDER ATYPICAL LBBB BASELINE ARTIFACT- I, II, III, AVR, AVL, AVF, V1-V2, V4-V6 ABNORMAL ECG No previous ECG available for comparison Electronically Signed On 06-13-2025 17:00:53 CDT by Brent Rosenbaum D.O.
--- NOTE | 2025-06-13 17:56 | ED_ITS ---
HPI - Chest Pain General Chief Complaint: Chest Pain <Dyana Robles PA-C - Last Filed: 06/13/25 18:05> Stated Complaint: epigastric pain <Dyana Robles PA-C - Last Filed: 06/13/25 18:05> Time Seen by Provider: 06/13/25 17:56 <Dyana Robles PA-C - Last Filed: 06/13/25 18:05> Focused HPI: Patient is a 64 y/o female who presents to the ED with c/o CP. Patient reports having an intermittent tightness/burning in her midsternal chest. Symptoms began last week, but have been progressively worsening. Worse with eating and bending over. Reports intermittent reflux/vomiting into her throat. Does not currently take anything for GERD. Had tried taking TUMS with mild relief, but states this is no longer helping. Reports some shortness of breath with exertion, but states this is not new. Hx of aortic coarctation with surgeries as a child. Hx of HLD, denies Hx of HTN/DM/smoking. GENERAL: Well-appearing, obese with BMI of 38.7, and in no acute distress. HEAD: Normocephalic, atraumatic. CHEST: Clear to auscultation. ?No respiratory distress. HEART: Regular rate and rhythm.? ABD: No significant upper abd focal tenderness. NEURO: ?Alert and oriented x3. Patient screened in triage and initial orders placed.? ?Additional care and disposition to be based upon?diagnostic testing and treatment. <Dyana Robles PA-C - Last Filed: 06/13/25 18:05> Source: patient <Dyana Robles PA-C - Last Filed: 06/13/25 18:05> Mode of arrival: ambulatory <Dyana Robles PA-C - Last Filed: 06/13/25 18:05> Limitations: no limitations <Dyana Robles PA-C - Last Filed: 06/13/25 18:05> History of Present Illness HPI narrative: Agree with the HPI above. Additional information patient states that she has a history of hiatal hernia seen on previous scans. <Ez Ryan MD - Last Filed: 06/14/25 02:47> Related Data Home Medications: Home Medications ?Medication ?Instructions ?Recorded ?Confirmed ?Last Taken ?Type budesonide-formoterol HFA 160 2 puff inhalation Q12H 0 02/19/24 05/23/25 Unknown History mcg-4.5 mcg/actuation aerosol inhaler <Dyana Robles PA-C - Last Filed: 06/13/25 18:05> Allergies/Adverse Reactions: Allergies Allergy/AdvReac Type Severity Reaction Status Date / Time gemifloxacin Allergy Unknown Unknown Verified 06/13/25 16:40 levofloxacin Allergy Unknown Unknown Verified 06/13/25 16:40 Quinolones Allergy Unknown Unknown Verified 06/13/25 16:40 <Dyana Robles PA-C - Last Filed: 06/13/25 18:05> Review of Systems 2 Review of Systems: As reviewed above in HPI <Ez Ryan MD - Last Filed: 06/14/25 02:47> [facility] Past Medical History Medical History: Medical History Arthritis Allergies Anxiety High cholesterol <Dyaan Robles PA-C - Last Filed: 06/13/25 18:05> Surgical History Surgical History: Surgical History H/O gynecological procedure hsope d&c History of orthopedic surgery golfer's elbow <Dyana Robles PA-C - Last Filed: 06/13/25 18:05> Family History Family History: Family History Sibling Family history of thyroid disease Father Diabetes mellitus, Onset Age: 84 Family history of malignant neoplasm, Onset Age: 84 Leukemia Mother Hypertension Other Acute myocardial infarction FH: malignant neoplasm of prostate Heart disease Malignant carcinoid tumor of lung <LISA Dye Last Filed: 06/13/25 18:05> Social History Social History: Social History Smoking status: Never smoker Alcohol intake: current Alcohol use details: occasional Substance use: never Substance use type: does not use Do You Feel Safe in your Home?: Yes Lack of Transportation: No Lack of Food: Never True Current Housing: I Have Housing Concerned About Future Housing: No Difficulty Paying Gas/Electric Bills: No Difficulty Paying for Meds: No Currently Unemployed: No Education: High School Diploma/GED Difficulty w/ Childcare or Family Care: No Living arrangements: with family Additional living arrangements comments: 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 Gender identity (if verbalized by the patient): Female Sexual Orientation (if Verbalized by the Patient): Straight or Heterosexual Agree to blood products: Yes <Dyana Robles PA-C - Last Filed: 06/13/25 18:05> Exam 2 Narrative: GENERAL: [Well-appearing, well-nourished, and in no acute distress.] HEAD: [Normocephalic, atraumatic.] EYES: [PERRLA and EOMI.] ENT: Nares clear, no rhinorrhea or epistaxis. Mucous membranes moist. NECK: Supple. CHEST: [Clear to auscultation. No respiratory distress.] HEART: [Regular rate and rhythm]. No murmur heard. [Normal peripheral pulses.] ABDOMEN: [Soft, nondistended], [nontender], [No rigidity or guarding] EXTREMITIES: Normal range of motion. [No edema.] SKIN: Warm, dry, no rash. NEURO: [No focal deficits]. Alert and oriented [x3.] PSYCH: [Normal mood and affect.] <Ez Ryan MD - Last Filed: 06/14/25 02:47> Course Vital Signs Vital signs: Vital Signs Temperature 36.7 C 06/13/25 16:36 Pulse Rate 77 06/13/25 16:36 Respiratory Rate 22 H 06/13/25 16:36 Blood Pressure 153/69 H 06/13/25 16:36 Pulse Oximetry 97 06/13/25 16:36 Oxygen Delivery Room Air 06/13/25 16:36 Temperature 35.7 C L 06/13/25 19:15 Pulse Rate 65 06/13/25 21:01 Respiratory Rate 20 06/13/25 21:01 Blood Pressure 148/64 H 06/13/25 21:01 Pulse Oximetry 95 06/13/25 21:01 Oxygen Delivery Room Air 06/13/25 20:58 <Dyana Robles PA-C - Last Filed: 06/13/25 18:05> Vital Signs Temperature 36.7 C 06/13/25 16:36 Pulse Rate 77 06/13/25 16:36 Respiratory Rate 22 H 06/13/25 16:36 Blood Pressure 153/69 H 06/13/25 16:36 Pulse Oximetry 97 06/13/25 16:36 Oxygen Delivery Room Air 06/13/25 16:36 Temperature 35.7 C L 06/13/25 19:15 Pulse Rate 65 06/13/25 21:01 Respiratory Rate 20 06/13/25 21:01 Blood Pressure 148/64 H 06/13/25 21:01 Pulse Oximetry 95 06/13/25 21:01 Oxygen Delivery Room Air 06/13/25 20:58 <Ez Ryan MD - Last Filed: 06/14/25 02:47> MDM - Chest Pain MDM Narrative Medical decision making narrative: MSE by ABDOUL in triage. <Dyana Robles PA-C - Last Filed: 06/13/25 18:05> MSE by ABDOUL in triage. Patient is a 64 y/o female who presents to the ED with c/o CP. Patient reports having an intermittent tightness/burning in her midsternal chest. Symptoms began last week, but have been progressively worsening. Worse with eating and bending over. Reports intermittent reflux/vomiting into her throat. Does not currently take anything for GERD. Had tried taking TUMS with mild relief, but states this is no longer helping. Reports some shortness of breath with exertion, but states this is not new. Hx of aortic coarctation with surgeries as a child. Hx of HLD, denies Hx of HTN/DM/smoking. Patient is hemodynamically stable without any tachycardia, fever, hypoxemia tachypnea or blood pressure concerns. She has strong symmetric pulses in clear breath sounds. No reproducible pain with palpation. She describes as a burning epigastric pain radiating towards her throat and back of her mouth. Improves with Tums. She called her doctor who was not able to see her today and referred to the ER for evaluation. Patient states she has a history of a hiatal hernia but never operated on. Cardiac workup or given her age and risk factors. Delta troponins, EKG, chest x-ray, right upper quadrant ultrasound ordered for gallstone pathology potential. Patient given a GI cocktail, Pepcid and sucralfate and had improvement symptomatology. EKG shows no ST segment elevations or depressions. Troponins are negative. Cardiac workup unremarkable at this juncture. Chest x-ray and right upper quadrant ultrasound normal. Likely patient has gastroesophageal reflux verses hiatal hernia causing her symptoms and she can be safely discharged with follow-up with her primary care provider and given prescriptions for Pepcid as needed. Patient and family updated the plan and safe for discharge home at this time. <Ez Ryan MD - Last Filed: 06/14/25 02:47> Medical Records Data Attestation: I reviewed the patient's medical records. <Ez Ryan MD - Last Filed: 06/14/25 02:47> Lab Data Attestation: I reviewed the patient's lab results. <Ez Ryan MD - Last Filed: 06/14/25 02:47> Result diagrams: 06/13/25 18:21 06/13/25 18:21 <Dyana Robles PA-C - Last Filed: 06/13/25 18:05> Labs: Lab Results 06/13/25 06/13/25 Range/Units 18:21 21:28 WBC 9.8 (4.5-10.0) K/mm3 RBC 4.82 (4.2-5.4) M/mm3 Hgb 13.9 (12.0-15.0) g/dL Hct 42.3 (37.0-47.0) % MCV 87.8 (80-100) fl MCH 28.8 (26-34) pg MCHC 32.9 (32-36) g/dl RDW 12.9 (11.5-14.5) % Plt Count 220 (150-375) k/mm3 MPV 11.3 H (7.4-10.4) fl Immature Gran % (Auto) 0.3 (0-0.5) % Neut % (Auto) 59.7 (45.5-73.1) % Lymph % (Auto) 29.6 (18.3-44.2) % [place] % (Auto) 7.5 (2.6-8.5) % Eos % (Auto) 2.4 (0-4.4) % Baso % (Auto) 0.5 (0.2-1.2) % Lymph # (Auto) 2.89 (0.9-3.2) K/mm3 [place] # (Auto) 0.7 H (0.1-0.6) K/mm3 Eos # (Auto) 0.2 (0-0.3) K/mm3 Baso # (Auto) 0.1 (0.0-0.1) K/mm3 Abs Immat Gran (auto) 0.03 (0.00-0.031) K/mm3 Absolute Neuts (auto) 5.8 (1.3-6.7) K/mm3 Absolute Nucleated RBC 0.000 (0.0-0.012) K/mm3 Nucleated RBC % 0.0 (0.0-0.2) % PT 13.1 (11.1-14.7) Seconds INR 1.0 APTT 30.6 (22.3-36.8) Seconds Sodium 136 L (137-145) mmol/L Potassium 4.2 (3.4-5.0) mmol/L Chloride 104 (98-107) mmol/L Carbon Dioxide 26 (22-30) mmol/L Anion Gap 6 (4-12) mmol/L BUN 19 H (7-17) mg/dL Creatinine 0.84 (0.7-1.0) mg/dL Estim Creat Clear Calc 76 ml/min Estimated GFR > 60 (59 - ) Glucose 118 H (65-110) mg/dL Calcium 9.7 (8.4-10.2) mg/dL Total Bilirubin 0.3 (0.2-1.3) mg/dL AST 30 (14-36) U/L ALT 33 (6-35) U/L Alkaline Phosphatase 107 (38-126) U/L Troponin I < 0.012 < 0.012 (0.000-0.034) ng/mL Total Protein 7.6 (6.3-8.2) g/dL Albumin 4.2 (3.5-5.1) g/dL Lipase 84 (23-300) U/L <Dyana Robles PA-C - Last Filed: 06/13/25 18:05> Lab Results 06/13/25 06/13/25 Range/Units 18:21 21:28 WBC 9.8 (4.5-10.0) K/mm3 RBC 4.82 (4.2-5.4) M/mm3 Hgb 13.9 (12.0-15.0) g/dL Hct 42.3 (37.0-47.0) % MCV 87.8 (80-100) fl MCH 28.8 (26-34) pg MCHC 32.9 (32-36) g/dl RDW 12.9 (11.5-14.5) % Plt Count 220 (150-375) k/mm3 MPV 11.3 H (7.4-10.4) fl Immature Gran % (Auto) 0.3 (0-0.5) % Neut % (Auto) 59.7 (45.5-73.1) % Lymph % (Auto) 29.6 (18.3-44.2) % [place] % (Auto) 7.5 (2.6-8.5) % Eos % (Auto) 2.4 (0-4.4) % Baso % (Auto) 0.5 (0.2-1.2) % Lymph # (Auto) 2.89 (0.9-3.2) K/mm3 [place] # (Auto) 0.7 H (0.1-0.6) K/mm3 Eos # (Auto) 0.2 (0-0.3) K/mm3 Baso # (Auto) 0.1 (0.0-0.1) K/mm3 Abs Immat Gran (auto) 0.03 (0.00-0.031) K/mm3 Absolute Neuts (auto) 5.8 (1.3-6.7) K/mm3 Absolute Nucleated RBC 0.000 (0.0-0.012) K/mm3 Nucleated RBC % 0.0 (0.0-0.2) % PT 13.1 (11.1-14.7) Seconds INR 1.0 APTT 30.6 (22.3-36.8) Seconds Sodium 136 L (137-145) mmol/L Potassium 4.2 (3.4-5.0) mmol/L Chloride 104 (98-107) mmol/L Carbon Dioxide 26 (22-30) mmol/L Anion Gap 6 (4-12) mmol/L BUN 19 H (7-17) mg/dL Creatinine 0.84 (0.7-1.0) mg/dL Estim Creat Clear Calc 76 ml/min Estimated GFR > 60 (59 - ) Glucose 118 H (65-110) mg/dL Calcium 9.7 (8.4-10.2) mg/dL Total Bilirubin 0.3 (0.2-1.3) mg/dL AST 30 (14-36) U/L ALT 33 (6-35) U/L Alkaline Phosphatase 107 (38-126) U/L Troponin I < 0.012 < 0.012 (0.000-0.034) ng/mL Total Protein 7.6 (6.3-8.2) g/dL Albumin 4.2 (3.5-5.1) g/dL Lipase 84 (23-300) U/L <Ez Ryan MD - Last Filed: 06/14/25 02:47> Imaging Data Attestation: I personally reviewed and interpreted this imaging study as follows: < Ez Ryan MD - Last Filed: 06/14/25 02:47> My impression: Impressions Chest X-Ray 06/13/25 17:07 Impression: No acute cardiopulmonary abnormality. Abdomen Ultrasound 06/13/25 19:06 IMPRESSION: No evidence for acute cholecystitis or cholelithiasis. No biliary ductal dilatation is noted. <Ez Ryan MD - Last Filed: 06/14/25 02:47> Discharge Plan Discharge Clinical Impression: Chest pain due to GERD, Hiatal hernia <Dyana Robles PA-C - Last Filed: 06/13/25 18:05> Patient Disposition: Home <Dyana Robles PA-C - Last Filed: 06/13/25 18:05> Condition: Stable <Dyana Robles PA-C - Last Filed: 06/13/25 18:05> Instructions: Antibiotic Form, Hiatal Hernia (DC), Diet for Stomach Ulcers and Gastritis (ED) <LISA Dye Last Filed: 06/13/25 18:05> Additional Instructions: Your cardiac enzymes were undetectable. Chest x-ray and right upper quadrant ultrasound are reassuring appear normal. Symptoms consistent with either hiatal hernia, stomach ulcer verses GERD. We will send you home with Pepcid to be taken twice daily and he can see your regular doctor. Continue taking Tums a can also get sucralfate or other agents such as Mylanta to help with her symptoms in the meantime. Return with any emergent concerns. <LISA Dye Last Filed: 06/13/25 18:05> Patient Language: Korean <LISA Dye Last Filed: 06/13/25 18:05> Prescriptions: New famotidine [Pepcid] 20 mg tablet 20 mg PO BID Qty: 20 0RF ondansetron 4 mg tablet,disintegrating 4 mg PO Q8H PRN (Reason: nausea and vomiting) Qty: 10 0RF No Action triamcinolone acetonide 55 mcg aerosol,spray 1 spray intranasal DAILY Qty: 16.9 2RF Rx Instructions: administer into each nostril budesonide-formoterol 160-4.5 mcg/actuation HFA aerosol inhaler 2 puff inhalation Q12H omeprazole 40 mg capsule,delayed release(DR/EC) See Rx Instructions .ROUTE .COMPLEX Qty: 90 1RF Dose Instruction: TAKE 1 CAPSULE BY MOUTH DAILY Rx Instructions: TAKE 1 CAPSULE BY MOUTH DAILY atorvastatin 20 mg tablet See Rx Instructions .ROUTE .COMPLEX Qty: 90 3RF Dose Instruction: TAKE 1 TABLET BY MOUTH EVERY DAY Rx Instructions: TAKE 1 TABLET BY MOUTH EVERY DAY <LISA Dye Last Filed: 06/13/25 18:05> Follow-up/Referrals: Evelyn Jaime APRN [Primary Care Provider, Family Practice] <LISA Dye Last Filed: 06/13/25 18:05> Time of Disposition: 22:19 <LISA Dye Last Filed: 06/13/25 18:05> 22:19 <Ez Ryan MD - Last Filed: 06/14/25 02:47>
[2025-06-13] MEDS: BELLADONNA ALK/PHENOB ELIX 10 ML, MAG HYDROX/ALUMINUM HYD/SIMETH 30 ML, LIDOCAINE 2% VI... PO (18:27)
[2025-06-13] MEDS: ASPIRIN 81 MG CHEWABLE TABLET 324 MG PO (18:27)
[2025-06-13 18:28] LABS: Hematocrit 42.3 % (37.0-47.0); Hemoglobin 13.9 g/dL (12.0-15.0); Immature Granulocyte Percent A 0.3 % (0-0.5); Lymphocytes Absolute Auto 2.89 K/mm3 (0.9-3.2); Mean Corpuscular HGB Conc 32.9 g/dl (32-36); Mean Corpuscular Hemoglobin 28.8 pg (26-34); Mean Corpuscular Volume 87.8 fl (80-100); Nucleated Red Blood Cells Absolute Auto 0.000 K/mm3 (0.0-0.012); Nucleated Red Blood Cells Perc 0.0 % (0.0-0.2); Platelet Count Result 220 k/mm3 (150-375); Red Blood Count 4.82 M/mm3 (4.2-5.4); White Blood Count 9.8 K/mm3 (4.5-10.0)
[2025-06-13 18:40] LABS: INR 1.0; Prothrombin Time 13.1 Seconds (11.1-14.7)
[2025-06-13 18:41] LABS: Alanine Aminotransferase 33 U/L (6-35); Albumin Level 4.2 g/dL (3.5-5.1); Alkaline Phosphatase 107 U/L (38-126); Anion Gap 6 mmol/L (4-12); Aspartate Amino Transferase 30 U/L (14-36); Bilirubin,Total 0.3 mg/dL (0.2-1.3); Blood Urea Nitrogen 19 mg/dL (7-17); Calcium 9.7 mg/dL (8.4-10.2); Carbon Dioxide 26 mmol/L (22-30); Chloride 104 mmol/L (98-107); Estimated CRCL calculation 76 ml/min; Estimated Glomerular Filt Rate > 60; Glucose 118 mg/dL (65-110); Lipase 84 U/L (23-300); Potassium 4.2 mmol/L (3.4-5.0); Sodium 136 mmol/L (137-145); Total Protein 7.6 g/dL (6.3-8.2)
[2025-06-13 18:42] LABS: Partial Thromboplastin Time 30.6 Seconds (22.3-36.8)
--- OUTSIDE RECORDS SUMMARY | 2025-06-13 18:45 | XMS_ITS | Clinical Summary ---
Author Organization [facility] [address] Address [address] [place] [address] Care Team Providers Care [employer] Consultant Name Role Phone Jennie Nazario MD Primary [...] (six) hours as needed for wheezing Active triamcinolone (NASACORT) 55 mcg nasal inhaler Administer 2 sprays into each nostril daily 16.9 mL 11 4 Active budesonide-form oteroL (SYMBICORT) 160-4.5 mcg/actuation inhaler INHALE 2 PUFFS BY MOUTH TWICE DAILY. RINSE MOUTH WITH WATER AFTER USE. 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 Gender Identity Not on file Sexual Orientation [...] 10:41 AM CDT Height 167.6 cm (5' 6) 01/13/2024 8:21 AM CDT Body Mass Index [...] of 2) 2012 Covid-19 Vaccine (4 - 2024- season) 2025 07/22/2021, 11/14/2020, 10/24/2020 Influenza Vaccine (#1) 2025 , 06/02/2020, 05/20/2019, Additional history exists Pneumococcal vaccine <65 Aged Out No longer eligible based on patient's age to complete [place] [address] [employer] OOS Member Subscriber Plan / Payer (Ef fective 2020-Present) Name:Karina Castrejon Relation to Subscriber:Self Name:Karina Castrejon Payer ID:[id number] (NAIC) Type:Zapproved Address: [facility] [id number] [address] [employer] CHOICE OOS BLUE ACCESS OOS BLUE ACC CHOICE OOS BLUE ACC CHOICE OOS Member Subscriber Plan / Payer (Ef fective 2022-) Name:Karina Castrejon Relation to Subscriber:Spouse Name:SARAH CASTREJON Date of :1964 (Home) Address: [address] [place] [id number] Payer ID:[id number] (NAIC) Type:BC ALLIANCE Address: [address] [facility] H[facility]/PPO Address: [address] [place] [address] Care Teams [employer] Consultant Relationship Specialty Start Date End Date Jennie Nazario MD [address] [place] [address] DR FERNANDEZ [address] [place] [id number] PCP - General Family Medicine 02/21/23
--- OUTSIDE RECORDS SUMMARY | 2025-06-13 18:45 | XMS_ITS | Clinical Summary ---
Author Organization [facility] Address [address] [place] [address] Care Team Providers Care Dandy Tender Name Role Phone Abdirashid Beltrán Primary Care Provider [phone] Source Comments [facility],non-owned Affiliates and Associated Physician Practices is amultiple site organization consisting of ambulatory clinics and hospital sitesin [place], [place], [place] and [place]. This disclosure is being madepursuant to the Care Everywhere program and may not contain all information available regarding this patient. Last updated 18.[facility] [employer] Allergies Active Allergy Reactions Criticality Noted Date [...] 2012 ZOSTER VACCINE (1 of 2) 2012 DEPRESSION SCREENING 08/25/2024 COVID-19 VACCINE (1 - 2023-2 5 season) 2025 INFLUENZA VACCINE (#1) 2025 06/02/2020 Respiratory Syncytial Virus (RSV) Vaccine Pt: or [...] this topic Insurance ANTHEM ANTHEM Care Teams Dandy Tender Relationship Specialty Start Date End Date Abdirashid Beltrán DO [address] [place], [place] [id number] PCP - General Internal Medicine 06/02/20
[2025-06-13 18:52] LABS: Troponin I < 0.012 ng/mL (0.000-0.034)
[2025-06-13 19:15] VITALS: BP 149/62; PULSE 70; RESP 16; TEMP 35.7; O2SAT 96
[2025-06-13 20:57] VITALS: BP 155/71; PULSE 68; RESP 23; O2SAT 96
[2025-06-13 20:58] VITALS: BP 155/71; PULSE 62; RESP 17; O2SAT 96
[2025-06-13 21:00] VITALS: PULSE 62
[2025-06-13 21:01] VITALS: BP 148/64; PULSE 65; RESP 20; O2SAT 95
--- NOTE | 2025-06-13 21:24 | ECG_ITS ---
Test Date: 2025-06-13 21:34:33 Measurements Intervals [place] Rate: 62 P: 41 DE: 167 QRS: -59 QRSD: 141 T: 60 QT: 443 QTc: 451 Interpretive Statements SINUS RHYTHM LEFT AXIS DEVIATION LEFT BUNDLE BRANCH BLOCK BASELINE ARTIFACT- I, II, III, AVR, AVL, AVF, V1-V6 ABNORMAL ECG Compared to ECG 06/13/2025 16:43:00 No significant changes Electronically Signed On 06-14-2025 06:14:37 CDT by Brent Rosenbaum D.O.
[2025-06-13] MEDS: FAMOTIDINE 20 MG/2 ML VIAL IV PUSH (21:27)
[2025-06-13] MEDS: SUCRALFATE 1 GM TABLET PO (21:27)
[2025-06-13 21:59] LABS: Troponin I < 0.012 ng/mL (0.000-0.034)
== END 2025-06-13 22:42 | disposition home or self-care (01) ==
PROVIDERS: Student in an Organized Health Care Education/Training Program; Emergency Provider Student in an Organized Health Care Education/Training Program; PCP Nurse Practitioner Adult Health
DX: K21.9 Gastro-esophageal reflux disease without esophagitis (principal); K44.9 Diaphragmatic hernia without obstruction or gangrene; R94.31 Abnormal electrocardiogram [ECG] [EKG]; M19.90 Unspecified osteoarthritis, unspecified site; F41.9 Anxiety disorder, unspecified; E78.2 Mixed hyperlipidemia
CPT/HCPCS: 36415; 71046; 76705; 80053; 83690; 84484; 85025; 85610; 85730; 93005; 96374; 99284; A9270

== ENCOUNTER 2025-07-16 13:54 | Emergency (ER) | payer OTHER, BC, SELFPAY ==
[2025-07-16 14:20] VITALS: BP 133/70; PULSE 68; RESP 20; TEMP 36.4; O2SAT 98
--- NOTE | 2025-07-16 15:13 | ED_ITS ---
HPI - Eye Problem General Chief complaint: Skin/Abscess/Foreign Body Stated complaint: EYE SWELLING History of Present Illness HPI Narrative: CHIEF COMPLAINT: Eye swelling PATIENT SUMMARY: The patient presented with eye swelling. HISTORY OF PRESENT ILLNESS: The patient presented with swelling around the eye that began yesterday morning. The patient initially thought it was a stye and applied hot compresses to the area. There was a little discharge noted, particularly in the morning when the eye was matted upon waking. The patient reported wearing contact lenses but had not worn them the previous day or today. The patient did not report any fever, body aches, chills, or vision changes. The patient experienced discomfort around the eye, especially when closing the eyelid, but did not report pain within the eyeball itself. The patient mentioned having had styes before but noted that this felt different, with more pressure and without the characteristic white bump of a stye. REVIEW OF SYSTEMS: Eyes: Positive for swelling and mild discharge. Negative for vision changes, blurriness, or pain within the eyeball. General: Negative for fever, body aches, or chills. PAST MEDICAL HISTORY: Not available. PAST SURGICAL HISTORY: Not available. MEDICATIONS: Not available. ALLERGIES: Levaquin (reaction not specified). SOCIAL HISTORY: Not available. VITALS AND PHYSICAL EXAM: Not available. DIAGNOSTIC STUDIES Not available. ASSESSMENT: The differential diagnoses are listed in order of most to least likely. 1. Preseptal cellulitis: The swelling and redness of the eyelid, along with mild discharge and discomfort, are indicative of preseptal cellulitis, particularly as the patient reported no pain within the eyeball and no vision changes. 2. Hordeolum (Stye): While the patient initially suspected a stye, the absence of a white bump and the report of greater pressure and discomfort make this less likely. 3. Conjunctivitis: Although the patient expressed concern about pink eye, the lack of redness in the sclera and the nature of the symptoms suggest this is less likely. PLAN: Treatment: - Prescribed antibiotics for suspected cellulitis. Tests: - None ordered at this time based on current presentation. Patient Education: - Instructed the patient not to wear contact lenses until the condition resolves. - Advised the patient to monitor symptoms and seek follow-up care with a primary care provider or acute care clinical nurse specialist if there is no improvement. Follow-Up: - Recommended follow-up with a primary care provider or acute care clinical nurse specialist if symptoms do not improve. Disposition: - The patient was advised to use the prescribed antibiotics and follow up as necessary. Related Data Home Medications ?Medication ?Instructions ?Recorded ?Confirmed ?Last Taken ?Type budesonide-formoterol HFA 160 2 puff inhalation Q12H 0 02/19/24 06/27/25 Unknown History mcg-4.5 mcg/actuation aerosol inhaler Allergies Allergy/AdvReac Type Severity Reaction Status Date / Time gemifloxacin Allergy Unknown Unknown Verified 07/16/25 14:51 levofloxacin Allergy Unknown Unknown Verified 07/16/25 14:51 Quinolones Allergy Unknown Unknown Verified 07/16/25 14:51 Review of Systems Review of Systems: All systems reviewed & are unremarkable except as noted in HPI and below Eyes: Eyes: Reports as per HPI ENT: Reports as per HPI Cardiovascular: Cardiovascular: Reports as per HPI Respiratory: Respiratory: Reports as per HPI Genitourinary: Genitourinary: Reports as per HPI Musculoskeletal: Musculoskeletal: Reports as per HPI Integumentary/Breasts: Skin/Breast: Reports as per HPI Neurologic: Reports as per HPI Psychiatric: Psychiatric: Reports as per HPI Endocrine: Endocrine: Reports as per HPI Hematologic/Lymphatic: Hematologic/Lymphatic: Reports as per HPI Allergic/Immunologic: Allergic/Immunologic: Reports as per HPI [facility] Past Medical History Medical History Arthritis Allergies Anxiety High cholesterol Surgical History Surgical History H/O gynecological procedure hsope d&c History of orthopedic surgery golfer's elbow Family History Family History Sibling Family history of thyroid disease Father Diabetes mellitus, Onset Age: 84 Family history of malignant neoplasm, Onset Age: 84 Leukemia Mother Hypertension Other Acute myocardial infarction FH: malignant neoplasm of prostate Heart disease Malignant carcinoid tumor of lung Social History Social History Smoking status: Never smoker Alcohol intake: current Alcohol use details: occasional Substance use: never Substance use type: does not use Do You Feel Safe in your Home?: Yes Lack of Transportation: No Lack of Food: Never True Current Housing: I Have Housing Concerned About Future Housing: No Difficulty Paying Gas/Electric Bills: No Difficulty Paying for Meds: No Currently Unemployed: No Education: High School Diploma/GED Difficulty w/ Childcare or Family Care: No Living arrangements: with family Additional living arrangements comments: 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 Gender identity (if verbalized by the patient): Female Sexual Orientation (if Verbalized by the Patient): Straight or Heterosexual Agree to blood products: Yes Exam Const: General: cooperative, healthy appearing, comfortable, no acute distress and well developed Orientation/consciousness: patient oriented x3 HENMT: Head: normal to inspection Eyes: General: appearance normal, both eyes and all related structures Resp: Effort & Inspection: normal respiratory effort and able to speak in complete sentences Auscultation: clear to auscultation bilaterally Cardio: Rate: regular rate Rhythm: regular rhythm Heart sounds: S1 normal heart sound present and S2 normal heart sound present Skin: General skin exam: normal color Neuro: General: patient oriented x3 Cognition (Neuro): normal cognition Speech: normal speech Psych: Mental Status: mental status grossly normal Course Course Level of Care: Express Care Visit Vital Signs Vital signs: Vital Signs Temperature 97.6 F 07/16/25 14:20 Pulse Rate 68 07/16/25 14:20 Respiratory Rate 20 07/16/25 14:20 Blood Pressure 133/70 07/16/25 14:20 Pulse Oximetry 98 07/16/25 14:20 Oxygen Delivery Room Air 07/16/25 14:20 Temperature 97.6 F 07/16/25 14:20 Pulse Rate 68 07/16/25 14:20 Respiratory Rate 20 07/16/25 14:20 Blood Pressure 133/70 07/16/25 14:20 Pulse Oximetry 98 07/16/25 14:20 Oxygen Delivery Room Air 07/16/25 14:20 MDM - Eye Problem MDM Narrative Medical decision making narrative: MEDICAL DECISION MAKING: The patient's history and present illness suggest a case of eyelid cellulitis. The patient presented with swelling, mild discharge, and discomfort around the eye, without systemic symptoms such as fever or body aches. The plan included prescribing antibiotics to address the suspected cellulitis. The patient was advised against wearing contact lenses until the issue resolves and was instructed to seek further medical attention if symptoms persist or worsen. Based on the assessment, the differential diagnoses included preseptal cellulitis, hordeolum, and conjunctivitis, with cellulitis being the most likely due to the presentation of symptoms. Differential Diagnosis Differential diagnosis: Likely conjunctivitis, periorbital cellulitis and other (stye, hordeolum, preseptal cellulitis) Discharge Plan Discharge Clinical Impression: Preseptal cellulitis of left eye Patient Disposition: Home Condition: Stable Instructions: Antibiotic Form, Cellulitis (ED) Additional Instructions: Antibiotics as prescribed. follow up with primary or eye doctor if no improvem ent. If worsening pain, fever or swelling or any other urgent concerns to the ER. Patient Language: Japanese Prescriptions: New amoxicillin-pot clavulanate 875-125 mg tablet 1 tablet PO Q12H 7 Days Qty: 14 0RF No Action triamcinolone acetonide 55 mcg aerosol,spray 1 spray intranasal DAILY Qty: 16.9 2RF Rx Instructions: administer into each nostril budesonide-formoterol 160-4.5 mcg/actuation HFA aerosol inhaler 2 puff inhalation Q12H omeprazole 40 mg capsule,delayed release(DR/EC) See Rx Instructions .ROUTE .COMPLEX Qty: 90 1RF Dose Instruction: TAKE 1 CAPSULE BY MOUTH DAILY Rx Instructions: TAKE 1 CAPSULE BY MOUTH DAILY ondansetron 4 mg tablet,disintegrating 4 mg PO Q8H PRN (Reason: nausea and vomiting) Qty: 10 0RF atorvastatin 20 mg tablet See Rx Instructions .ROUTE .COMPLEX Qty: 90 3RF Dose Instruction: TAKE 1 TABLET BY MOUTH EVERY DAY Rx Instructions: TAKE 1 TABLET BY MOUTH EVERY DAY Follow-up/Referrals: Evelyn Jaime APRN [Primary Care Provider, [facility]] Time of Disposition: 15:15
== END 2025-07-16 15:27 | disposition home or self-care (01) ==
PROVIDERS: Emergency Provider Nurse Practitioner Family; PCP Nurse Practitioner Adult Health
DX: L03.213 Periorbital cellulitis (principal); E78.00 Pure hypercholesterolemia, unspecified; M19.90 Unspecified osteoarthritis, unspecified site
CPT/HCPCS: 99213; G0463

== ENCOUNTER 2025-08-02 09:45 | Outpatient (CLI) | payer OTHER, BC, SELFPAY ==
--- NOTE | ~2025-08-02 | NM_ITS ---
EXAMINATION: NM_HEPATWP_NM DATE: 08/02/2025 12:22 INDICATION: Right upper quadrant abdominal pain. Gastroesophageal reflux disease. COMPARISON: None. TECHNIQUE: 5.029 mCi Tc-99m mebrofenin (Choletec) was administered intravenously. Scintigraphic images of the abdomen were obtained for one hour. 2.2 mcg sincalide (Kinevac) was administered by slow intravenous infusion, and imaging was continued for 30 minutes. Gallbladder ejection fraction was calcu lated by the technologist. FINDINGS: There is normal clearance of radiotracer from the blood pool. There is homogeneous tracer uptake by the liver. Activity progresses to the gallbladder and bowel. The gallbladder ejection fraction (GBEF) is 75% (normal 10-90%, but most patient with gallbladder dysfunction have GBEF < 35% which does overlap with the normal range). IMPRESSION: 1. Normal hepatobiliary scan Reviewed, dictated and finalized at location A. [facility]
== END 2025-08-02 09:46 | disposition home or self-care (01) ==
PROVIDERS: PCP Nurse Practitioner Adult Health; Visit Provider Nurse Practitioner Adult Health
DX: K21.9 Gastro-esophageal reflux disease without esophagitis (principal); R10.11 Right upper quadrant pain
CPT/HCPCS: 78227; A9537; J2805

== ENCOUNTER 2025-08-11 00:47 | Day surgery (SDC) | payer OTHER, BC, SELFPAY ==
[2025-08-09 09:25] VITALS: BMI 38.7
--- OUTSIDE RECORDS SUMMARY | 2025-08-11 00:51 | XMS_ITS | Clinical Summary ---
Author Organization [facility] [address] Address [address] [place] [address] Care Team Providers Care Travel Counselor Name Role Phone Jennie Nazario MD Primary [...] on file Legal Sex Female 7:45 PM [employer] Gender Identity Not on file Sexual Orientation [...] patient's age to complete this topic Insurance [employer] OOS Member Subscriber Plan / Payer (Ef fective 2020-Present) Name:Karina Castrejon Relation to Subscriber:Self Name:Karina Castrejon Payer ID:[id number] (NAIC) Type:itzat Address: [facility] [id number] [address] [place] CHOICE OOS BLUE ACCESS OOS BLUE ACC CHOICE OOS BLUE ACC CHOICE OOS Member Subscriber Plan / Payer (Ef fective 2022-) Name:Karina Castrejon Relation to Subscriber:Spouse Name:SARAH CASTREJON Date of :1964 (Home) Address: [address] [place] [id number] Payer ID:[id number] (NAIC) Type:BC ALLIANCE Address: [address] [place] [id number] [facility] HMO/PPO Address: [address] [place] [address] Care Teams Travel Counselor Relationship Specialty Start Date End Date Jennie Nazario MD [address] [place] [address] DR FERNANDEZ [address] [place] [id number] PCP - General Family Medicine 02/21/23
[2025-08-11 10:56] VITALS: BP 149/64; PULSE 75; RESP 19; TEMP 37.1; O2SAT 96
[2025-08-11] MEDS: LACTATED RINGERS 1,000 ML 150 ML IV CONT (11:04)
[2025-08-11] MEDS: SIMETHICONE ORAL SUSPENSION 20 MG/0.3 ML 30 ML BOTTLE 1.8 ML PO (12:01)
--- NOTE | 2025-08-11 12:14 | WPDANESEPPF ---
Anes - Initial Pre Proc Eval Procedure: Operation Date: 08/11/25 12:30 Proposed Procedures p Esophagogastroduodenoscopy EGD - Ke Ramos MD Date/Time: 08/11/25 12:14 Surgeon: Ke Ramos MD Pre Op Diagnosis: GERD Patient Data Age: 64 Gender: F Height: 1.68 m Weight: 98.7 kg Last Vital Signs Temp 98.7 F 08/11/25 10:56 Pulse 75 08/11/25 10:56 Resp 19 08/11/25 10:56 BP 149/64 H 08/11/25 10:56 Pulse Ox 96 08/11/25 10:56 O2 Del Method Room Air 08/11/25 10:56 Allergies Allergy/AdvReac Type Severity Reaction Status Date / Time gemifloxacin Allergy Unknown Unknown Verified 08/11/25 10:55 levofloxacin Allergy Unknown Unknown Verified 08/11/25 10:55 Quinolones Allergy Unknown Unknown Verified 08/11/25 10:55 Home Medications ?Medication ?Instructions ?Recorded ?Confirmed ?Type triamcinolone acetonide 55 mcg 1 spray intranasal DAILY #16.9 mL 10/24/21 08/11/25 Rx nasal spray aerosol budesonide-formoterol HFA 160 2 puff inhalation Q12H 02/19/24 08/11/25 History mcg-4.5 mcg/actuation aerosol inhaler atorvastatin 20 mg tablet See Rx Instructions .Route 02/07/25 08/11/25 Rx .COMPLEX #90 tabs ondansetron 4 mg disintegrating 4 mg PO Q8H PRN nausea and 06/13/25 08/09/25 Rx tablet vomiting #10 tabs omeprazole 40 mg capsule,delayed See Rx Instructions .Route 07/18/25 08/11/25 Rx release .COMPLEX #30 caps calcium carbonate 500 mg PO DAILY 08/09/25 08/11/25 History sertraline 50 mg tablet 50 mg PO Q24H 08/09/25 08/11/25 History Patient hx anesthesia problems: none Family hx anesthesia problems: none Results Review: All pre-operative results and documents have been reviewed as part of the pre-operative evaluation. PMFSH Past Medical History Medical History Arthritis Allergies Anxiety High cholesterol Surgical History Surgical History H/O gynecological procedure hsope d&c History of orthopedic surgery golfer's elbow Family History Family History Sibling Family history of thyroid disease Father Diabetes mellitus, Onset Age: 84 Family history of malignant neoplasm, Onset Age: 84 Leukemia Mother Hypertension Other Acute myocardial infarction FH: malignant neoplasm of prostate Heart disease Malignant carcinoid tumor of lung Social History Social History Smoking status: Never smoker Alcohol intake: current Alcohol use details: occasional Substance use: never Substance use type: does not use Lack of Transportation: No Lack of Food: Never True Current Housing: I Have Housing Concerned About Future Housing: No Difficulty Paying Gas/Electric Bills: No Difficulty Paying for Meds: No Currently Unemployed: No Education: High School Diploma/GED Difficulty w/ Childcare or Family Care: No Living arrangements: with family Additional living arrangements comments: 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 Gender identity (if verbalized by the patient): Female Sexual Orientation (if Verbalized by the Patient): Straight or Heterosexual Spiritual care concerns: No Agree to blood products: Yes Anes - Eval Final PreProcedure Day of Procedure 08/11/25 12:14 Patient weight: obese Lungs: normal air movement Airway: Mallampati scale class II Neurological: alert and oriented Last oral intake: >/= 8 hours ASA classification: III Emergent: no Anesthetic plan: proceed Anesthesia type and monitoring: general GIVS and standard monitoring Results Review: All pre-operative results and documents have been reviewed as part of the pre-operative evaluation. Hx of coarc repair as /child,, BMI 35, hyperlipidemia, GERD. 06/18 ER visit for cp, ruled out cardiac. Now for GI eval. Informed Consent: The patient's anesthetic plan and its attendant risks and benefits were discussed with the patient/family/POA. Questions were solicited and answers provided to the satisfaction of the patient/family/POA.
--- NOTE | 2025-08-11 12:36 | PM.IMHP2 ---
H&P: HPI History of Present Illness Date/Time: 08/11/25 12:36 Chief Complaint: GERD Narrative: The patient has been complaining of heartburn for several years however in the past couple months this has become worse, having daily episodes despite taking omeprazole once a day. She denies dysphagia or weight loss. He is now referred for EGD. Review of Systems Review of Systems: All systems reviewed & are unremarkable except as noted in HPI and below PMFSH Past Medical History Medical History Arthritis Allergies Anxiety High cholesterol Surgical History Surgical History H/O gynecological procedure hsope d&c History of orthopedic surgery golfer's elbow Family History Family History Sibling Family history of thyroid disease Father Diabetes mellitus, Onset Age: 84 Family history of malignant neoplasm, Onset Age: 84 Leukemia Mother Hypertension Other Acute myocardial infarction FH: malignant neoplasm of prostate Heart disease Malignant carcinoid tumor of lung Social History Social History Smoking status: Never smoker Alcohol intake: current Alcohol use details: occasional Substance use: never Substance use type: does not use Lack of Transportation: No Lack of Food: Never True Current Housing: I Have Housing Concerned About Future Housing: No Difficulty Paying Gas/Electric Bills: No Difficulty Paying for Meds: No Currently Unemployed: No Education: High School Diploma/GED Difficulty w/ Childcare or Family Care: No Living arrangements: with family Additional living arrangements comments: 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 Gender identity (if verbalized by the patient): Female Sexual Orientation (if Verbalized by the Patient): Straight or Heterosexual Spiritual care concerns: No Agree to blood products: Yes Meds Home Medications and Allergies Home Medications ?Medication ?Instructions ?Recorded ?Confirmed ?Type triamcinolone acetonide 55 mcg 1 spray intranasal DAILY #16.9 mL 10/24/21 08/11/25 Rx nasal spray aerosol budesonide-formoterol HFA 160 2 puff inhalation Q12H 02/19/24 08/11/25 History mcg-4.5 mcg/actuation aerosol inhaler atorvastatin 20 mg tablet See Rx Instructions .Route 02/07/25 08/11/25 Rx .COMPLEX #90 tabs ondansetron 4 mg disintegrating 4 mg PO Q8H PRN nausea and 06/13/25 08/09/25 Rx tablet vomiting #10 tabs omeprazole 40 mg capsule,delayed See Rx Instructions .Route 07/18/25 08/11/25 Rx release .COMPLEX #30 caps calcium carbonate 500 mg PO DAILY 08/09/25 08/11/25 History sertraline 50 mg tablet 50 mg PO Q24H 08/09/25 08/11/25 History Allergies Allergy/AdvReac Type Severity Reaction Status Date / Time gemifloxacin Allergy Unknown Unknown Verified 08/11/25 10:55 levofloxacin Allergy Unknown Unknown Verified 08/11/25 10:55 Quinolones Allergy Unknown Unknown Verified 08/11/25 10:55 Vital Signs Vital Signs - 24 hr 08/11/25 10:56 Temperature 98.7 F Pulse Rate 75 Respiratory Rate 19 Blood Pressure 149/64 H Pulse Oximetry 96 Oxygen Delivery Room Air Exam Const: General: cooperative and healthy appearing Resp: Effort & Inspection: normal respiratory effort and able to speak in complete sentences Auscultation: clear to auscultation bilaterally Cardio: Rate: regular rate Rhythm: regular rhythm GI: Inspection: normal to inspection GI Palp: No No hepatosplenomegaly present Auscultation: normal bowel sounds Rectal Exam: deferred Skin: General skin exam: normal color Psych: Appearance: grossly normal Mental Status: mental status grossly normal Assessment and Plan Assessment and plan (1) GERD (gastroesophageal reflux disease): Code(s): K21.9 - Gastro-esophageal reflux disease without esophagitis Status: Acute Assessment and Plan: The patient is deemed a good candidate for the procedure. Consent signed. Will proceed. Prior Studies I have reviewed the following patient records and this information was taken into consideration when formulating the assessment and plan.: previous labs, previous ER visits, previous hospitalizations and previous clinic visits
--- NOTE | 2025-08-11 12:47 | S_PTH ---
PATIENT: Karina Castrejon LOC: [facility] Moreno#:[id number] AGE/SX: 64/F ROOM: RE08/11/[address]: Ke Ramos MD : 1960 BED: DIS: 08/11/2025 SPEC #: [id number] RECD: 08/11/25 13:42 STATUS: PREM REFeliciano #: [id number] MAME: 08/11/25 12:[address]: Ke Ramos DEPT: [facility] Surgical RECD BY: Karen Roca ENTERED: 08/11/25 13:43 SP TYPE: Surgical OTHR DR: Evelyn Jaime APRN Tissues: A - Gastric Biopsy B - Gastric Biopsy C - Esophageal Biopsy Procedures: Hematoxylin and Eosin Stain Gross and Microscopic Level 4 H.Pylori
[2025-08-11 12:49] VITALS: BP 137/67; PULSE 79; RESP 26; O2SAT 97
[2025-08-11 12:59] VITALS: BP 133/75; PULSE 74; RESP 24; O2SAT 97
[2025-08-11 13:09] VITALS: BP 147/68; PULSE 70; RESP 18; O2SAT 97
== END 2025-08-11 13:28 | disposition home or self-care (01) ==
PROVIDERS: PCP Nurse Practitioner Adult Health; Referring Provider Nurse Practitioner Adult Health; Visit Provider Internal Medicine Gastroenterology
PROC: 0DJ08ZZ Inspection of Upper Intestinal Tract, Via Natural or Artificial Opening Endoscopic (ICD-10-PCS; CPT 43239; principal; 2025-08-11 12:30)
DX: K21.9 Gastro-esophageal reflux disease without esophagitis (principal); K22.70 Barrett's esophagus without dysplasia; K31.7 Polyp of stomach and duodenum; K29.50 Unspecified chronic gastritis without bleeding; E66.9 Obesity, unspecified; Z68.35 Body mass index [BMI] 35.0-35.9, adult
CPT/HCPCS: 43239; 88305; 88342; J7120